=== PATIENT | male | born 1945 | race Caucasian/White ===

== ENCOUNTER 2017-01-29 01:20 | Inpatient (IN) ==
[2017-01-29] MEDS ORDERED: Acetaminophen 325 MG TABLET PO PRN (08:55)
[2017-01-29] MEDS ORDERED: Ondansetron 4 MG/2 ML VIAL IVP PRN (08:55)
[2017-01-29] MEDS ORDERED: 0.9 % Sodium Chloride w KCl 20 MEQ/1,000 ML MLS IVC SCH (09:00)
--- NOTE | 2017-01-29 09:17 | Internal Med History&Physical ---
Date of Encounter: 01/29/17 Time of Encounter: 09:13 Assessment and Plan (1) Paroxysmal a-fib Current visit: Yes Status: Acute Patient currently still in atrial fibrillation. Cardizem drip was stopped at [place] due to bradycardia. Heart rate in the high 80s to low 100s currently. I will start oral Cardizem. Trend troponins to rule out ACS. Obtain echocardiogram. Check thyroid function. Check and replete electrolytes. Consult cardiology. Chads-Vasc score of 3. Stroke risk 3.2% per year. Will start Lovenox anticoagulation for prophylaxis of stroke/TIA/embolism. (2) Atrial fibrillation with RVR Current visit: Yes Status: Acute Continue metoprolol and start oral diltiazem For rate control. (3) DVT prophylaxis Current visit: Yes Status: Acute Encourage early ambulation. Fully anticoagulated with Lovenox. (4) CAD (coronary artery disease) Current visit: Yes Status: Chronic Continue Plavix. Start aspirin. Continue with metoprolol. (5) HLD (hyperlipidemia) Current visit: No Status: Chronic For hyperlipidemia we will continue losartan. 4 essential hypertension continue oral antihypertensive medication. For DVT prophylaxis he is fully anticoagulated with Lovenox. Qualifiers: Qualified Code(s): E78.5 - Hyperlipidemia, unspecified Internal Medicine - H&P: HPI Chief complaint: Palpitations Admitted From: Intrahospital Transfer Plans for Post Hospital Care: Home History of present illness: Mr. Torres is a 72 year old male with past medical history significant for hypertension and CAD status post CABG who was transferred from an outside hospital where he presented for palpitations. Last evening she was ambulating at home when he developed sudden onset of palpitations in his chest, described as irregular, rapid pulse. She denied any associated chest pain lightheadedness and dizziness. Palpitations lasted for several hours until he presented to the hospital and he was started on Cardizem drip at which point he started to get some relief. He denies fevers chills nausea vomiting diarrhea, abnormal bleeding or bruising,. He reports chronic abdominal pain, urinary frequency secondary to BPH and chronic knee pain. At the outside hospital he was started on Cardizem drip and was given IV potassium for hypokalemia. A 10 point review of systems was negative except as described above. 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 He denies tobacco alcohol and drug use. Past Med Surg Social Fam HX - Past Medical History Medical history: arthritis, cancer, coronary artery disease, GERD, hypertension , kidney stones, myocardial infarction Psychiatric history: no psych history - Past Surgical History Surgical History: coronary bypass (CABG), herniorrhaphy, orthopedic, other - Social History Smoking Status: Never smoker Smokeless Tobacco Status: No (previously) Alcohol use: occasionally, recent Drug use: none - Family History Mother Living Status: Hx Family Cardiac Disorders: Yes Hx Family Respiratory Disorders: Yes (emphysema) Father Living Status: Age at : 66 Hx Family Cancer: Yes (colon cancer) Internal Medicine - H&P: Meds Amlodipine [Norvasc] 2.5 mg PO DAILY 01/13/16 [History] Atorvastatin [Lipitor] 40 mg PO DAILY 01/13/16 [History] Clopidogrel [Plavix] 75 mg PO DAILY 01/13/16 [History] Finasteride [Proscar] 5 mg PO HS 01/13/16 [History] Hydrochlorothiazide 25 mg PO DAILY 01/13/16 [History] Losartan Potassium [Cozaar] 50 mg PO BID 01/13/16 [History] Metoprolol XL (24 HR) Succ [Toprol Xl] 50 mg PO DAILY 01/13/16 [History] Ranitidine HCl [Zantac] 150 mg PO BID 01/13/16 [History] Tamsulosin [Flomax] 0.4 mg PO DAILY 01/13/16 [History] Nitroglycerin [Nitrostat] 0.4 mg SL Q5M PRN 03/14/16 [History] Pantoprazole Sodium 40 PO DAILY 01/29/17 [History] Allergies No Known Allergies Allergy (Verified 01/28/17 21:43) All Systems PM: A 10-system review of systems was performed and is negative for pertinent findings except as documented above in the HPI. - Constitutional Vitals: Temp Pulse Resp BP Pulse Ox 98.2 F 55 16 119/74 95 01/29/17 06:10 01/29/17 06:10 01/29/17 06:10 01/29/17 06:10 01/29/17 06:10 General appearance: Present: A&O X 3, no acute distress - Eye Eye exam: Present: PERRL, conjuntiva pink, sclera anicteric Pupils: Present: PERRL - Neck Neck exam general surgery: Present: supple, trachea midline. Absent: lymphadenopathy - Respiratory Respiratory exam: Present: CTAB. Absent: accessory muscle use, rales, rhonchi, wheezes - Cardiovascular Cardiovascular exam: Present: irregular rhythm, +S1, +S2. Absent: diastolic murmur, gallop, rubs, systolic murmur - GI/Abdominal GI/Abdominal exam: Present: normal bowel sounds, soft, no peritoneal signs. Absent: distended, tenderness - Extremities Exam Extremities exam: Present: warm, radial pulses palpable and symetrical. Absent : calf tenderness, cyanotic, pedal edema - Neurological Exam Neurological exam: Present: CN II-XII intact, oriented X3, no focal deficits. Absent: pronater drift, facial droop, speech deficit - Skin Skin exam: Present: dry, intact Internal Med - H&P Results - Labs CBC & Chem 7: 01/29/17 09:49 Labs: At [facility] medical record from 01/28/2017: Sodium 141, potassium 3.1, BUN 24, creatinine 0.92, glucose 112, BNP 69, troponin 0.01. Chest x-ray at [place] revealed no evidence of acute disease in the chest. - EKG Data -: EKG Interpreted by Myself (Yusra snow RVR 10 2 bpm, no acute ST or T-wave changes.)
[2017-01-29 10:22] LABS: BUN/Creatinine Ratio 26 (6-26); Blood Urea Nitrogen 20 mg/dL (8-26); Calcium 8.6 mg/dL (8.6-10.8); Carbon Dioxide 24 mEq/L (19-29); Chloride 109 mEq/L (98-109); Glucose 100 mg/dL (70-99); Osmolality,Calculated 295 (280-300); Potassium 3.5 mEq/L (3.5-4.5); Sodium 141 mEq/L (136-145); eGFR For African Americans > 60 (> 60); eGFR For Non-African Americans > 60 (> 60)
[2017-01-29] MEDS ORDERED: Nitroglycerin 0.4 MG TAB.SUBL SL PRN (10:32)
[2017-01-29] MEDS ORDERED: amLODIPine 5 MG TABLET PO SCH (10:45)
--- NOTE | 2017-01-29 11:11 | Cardiology Consult Note ---
Date of Encounter: 01/29/17 Time of Encounter: 11:08 Assessment and Plan (1) Atrial fibrillation with RVR Current Visit: Yes Status: Acute New diagnosis. Symptoms started last night and have persisted. On Toprol XL 50mg daily. K was 3.1 on presentation. Pt reports only med change was PCP started him on Pantoprazole recently. Potassium is being replaced. Mag 1.8, TSH 2.065. A-Fib with RVR on presentation, then became bradycardic with cardizem gtt and gtt was stopped. HR currently 90s-100s at bedside. Hospitalist has ordered PO Cardizem to be started--agree with this. CHADSVASC score of 3 (Age, HTN, CAD). Anticoagulation recommended. Discussed Coumadin vs. NOACs. Prefers NOAC. Will await echo results and vicente check. Therapeutic Lovenox in the meantime. Continue to monitor tele. Reports snoring at night--recommend outpt sleep study. Pt interested in rhythm control. Discussed DCCV, antarrhythmics, ablation. Will further discuss with Dr. Stewart and with EP, Dr. Shyam Odom. (2) CAD (coronary artery disease) Current Visit: Yes Status: Chronic Pt reports hx of CABG x 5 in 1999. Reports repeat LHC in 2004 and only showed 1 patent bypass graft. Pt and state they were told PCI was unable to be done. Pt denies any chest pain or dyspnea. Echo to evaluate structure and function. Continue Plavix, Statin, BB. No ASA since we will be starting anticoagulation-- triple therapy not necessary. Qualifiers: Coronary Disease-Associated Artery/Lesion type: unspecified vessel or lesion type [place] vs. transplanted heart: unspecified whether [place] or transplanted heart Associated angina: angina presence unspecified Qualified Code(s): I25.10 - Atherosclerotic heart disease of [place] coronary artery without angina pectoris (3) Essential hypertension Current Visit: Yes Status: Chronic Controlled currently. Stop Norvasc since starting Cardizem. On Toprol XL and Cozaar. Adjust as necessary. Discussion w patient/family: The assessment and plan as outlined above was discussed with the patient and/or family members who expressed understanding and agreement. All questions were answered. Thank you for involving us in the care of your patient. Please call with any questions. I will discuss all the above with Dr. Stewart and make changes as necessary. History of Present Illness Consult date: 01/29/17 Requesting physician: Blane Carrasco Consult reason: A-Fib Chief complaint: palpitations History of present illness: Mr. Torres is a 72 year old male with PMH of HTN and CAD s/p CABG x 5 in 1999, who was transferred from [place], where he presented for palpitations. Yesterday evening he was ambulating at home when he developed sudden onset of palpitations, described as irregular and rapid. He denies any associated chest pain, lightheadedness, dyspnea or dizziness. Palpitations lasted for several hours until he presented to the hospital and he was started on Cardizem drip at which point he started to get some relief. However, he then became bradycardic and cardizem was stopped. HR currently 90s-low 100s and pt reports ongoing palpitations. He tells me he had a repeat LHC in 2004 and only 1/5 bypass grafts were open, none were able to be stented. Past Med Surg Social Fam HX - Past Medical History Medical history: arthritis, cancer, coronary artery disease, GERD, hypertension , kidney stones, myocardial infarction Psychiatric history: no psych history - Past Surgical History Surgical History: coronary bypass (CABG), herniorrhaphy, orthopedic, other - Social History Smoking Status: Never smoker Smokeless Tobacco Status: No (previously) Alcohol use: occasionally, recent Drug use: none - Family History Mother Living Status: Hx Family Cardiac Disorders: Yes Hx Family Respiratory Disorders: Yes (emphysema) Father Living Status: Age at : 66 Hx Family Cancer: Yes (colon cancer) Medications and Allergies Amlodipine [Norvasc] 2.5 mg PO DAILY 01/13/16 [History] Atorvastatin [Lipitor] 40 mg PO DAILY 01/13/16 [History] Clopidogrel [Plavix] 75 mg PO DAILY 01/13/16 [History] Finasteride [Proscar] 5 mg PO HS 01/13/16 [History] Hydrochlorothiazide 25 mg PO DAILY 01/13/16 [History] Losartan Potassium [Cozaar] 50 mg PO BID 01/13/16 [History] Metoprolol XL (24 HR) Succ [Toprol Xl] 50 mg PO DAILY 01/13/16 [History] Ranitidine HCl [Zantac] 150 mg PO BID 01/13/16 [History] Tamsulosin [Flomax] 0.4 mg PO DAILY 01/13/16 [History] Nitroglycerin [Nitrostat] 0.4 mg SL Q5M PRN 03/14/16 [History] Pantoprazole Sodium 40 PO DAILY 01/29/17 [History] Allergies No Known Allergies Allergy (Verified 01/28/17 21:43) All Systems Review: A 10-system review of systems was performed and is negative for pertinent findings except as documented above in the HPI. - Cardiovascular Cardiovascular: as per HPI, irregular heart rhythm, palpitations, rapid heart rate Physical Examination Vital Signs Temp Pulse Resp BP Pulse Ox 01/29/17 06:10 98.2 F 55 16 119/74 95 Intake and Output 01/28/17 01/29/17 01/29/17 22:59 07:59 15:59 Other: Weight Patient Weight 01/30/17 00:59 Weight 88.621 kg General: Conversant, No Apparent Distress HEENT: Atraumatic, Normocephaly, Mucus Membranes Moist Neck: No JVD, Normal carotid pulses Cardiac: Other (irregularly irregular) Lungs: Normal Breath Sounds, No Wheeze, Rales, Rhonchi Neuro: Alert and responsive, No focal deficits noted Abdomen: Soft, Non-Tender Skin: No rashes noted on visualized skin Musculoskeletal: No Chest Wall Tenderness Extremities: No Clubbing, No Cyanosis, No Edema, Normal Pulses Results 01/29/17 09:49 Lab Results 01/29/17 01/29/17 01/29/17 09:49 09:49 09:49 Sodium 141 Potassium 3.5 Chloride 109 Carbon Dioxide 24 BUN 20 Creatinine 0.78 Glucose 100 H Calcium 8.6 Magnesium 1.8 Troponin I 0.01 TSH 01/29/17 09:49 Sodium Potassium Chloride Carbon Dioxide BUN Creatinine Glucose Calcium Magnesium Troponin I TSH 2.065 - EKG Interpretation EKG results cardiology: personally reviewed (A-Fib, rate 102.), other (24 hour tele AVG HR 95, A-Fib.) Consult Discharge Plan - Plan Referrals: Chaz Teran PRIZE FIGHTER [Primary Care Provider] -
[2017-01-29] MEDS: Metoprolol XL (24 HR) Succ 50 MG TAB.ER.24H PO SCH (12:01)
[2017-01-29] MEDS: Aspirin Enteric Coated 81 MG Tablet PO SCH (12:04)
[2017-01-29] MEDS: Famotidine 20 MG TABLET PO SCH ×2 (12:09→21:21)
--- NOTE | 2017-01-29 14:36 | ECHO - Doppler Report ---
Echocardiogram Name: Herve Torres Date of Study: 01/29/2017 Date: 1945 Ht: 71.0 in Medical Record#: [id number] Age: 72 Wt: 195.0 lb Gender: Male BSA: 2.09 Order #: [id number] Location: [facility] Room #: 3B34 Reading Physician: Neftaly Stewart DO, [facility] Database Operator: Mable Burns RDCS Ordering Physician: Blane Carrasco MD Primary Physician: Chaz Teran CNP Indications: Atrial fibrillation with rapid ventricular response Impressions: LVEF 50%. Normal LV chamber size, wall thickness and low normal function. Atypical septal motion consistent with post-operative status. Indeterminate diastolic function. Normal right ventricular structure and function. No evidence of pulmonary hypertension. No significant valvular dysfunction. Left Ventricular Wall Motion: Rest Echo Findings All wall segments showed normal motion. Findings: Study Quality * Technically adequate exam. ECG Findings * Atrial fibrillation. Left Ventricle * LVEF 50%. * Normal LV chamber size, wall thickness and low normal function. * Atypical septal motion consistent with post-operative status. * Indeterminate diastolic function. Right Ventricle * Normal right ventricular structure and function. Left Atrium * Mildly dilated left atrium. Right Atrium * Mildly dilated right atrium. Interatrial Septum * Interatrial septum not well evaluated. Aortic Valve * Trileaflet aortic valve. * No aortic regurgitation. * No aortic stenosis. Mitral Valve * Normal mitral valve structure and function. * No mitral regurgitation. * No mitral stenosis. Tricuspid Valve * Normal tricuspid valve structure and function. * Trace tricuspid regurgitation. * No evidence of pulmonary hypertension. Pulmonic Valve * Normal pulmonic valve structure and function. * No pulmonic regurgitation. Aorta * Normally sized aortic root. Pericardium * There is a trivial pericardial effusion present. IVC * The IVC is not dilated. Pulmonary Artery * Normal visualized portions of the main pulmonary artery. History Hypertension Hypercholesteremia Family History of CAD History of CAD/PTCA Myocardial Infarction Coronary Artery Bypass Graft Measurements: BP: 119/ 74 2D Normal Values RVIDd: 3.50 cm <2.7 cm IVSd: 1.10 cm 0.6 - 1.0 cm LVIDd: 5.00 cm 3.7 - 5.6 cm LVPWd: 1.10 cm 0.6 - 1.1 cm LVIDs: 2.80 cm 1.5 - 3.6 cm AO: 2.90 cm < 4.0 cm LA: 3.50 cm 2.0 - 4.0cm %FS: 44.00 cm >25 % LVOT Diam: 2.10 cm LA volume: 54 Mitral Valve Peak E:.83 m/sec Peak A:.31 m/sec E/A Ratio:2.7 Peak E' Lat Luis:13.4 cm/s Peak E' Med Luis:13.4 cm/s E/E' Lat Ratio:6.2 E/E' Med Ratio:6.2 Tricuspid Valve TV Regurg Peak Grad: 23.00mmHg TV Regurg Peak Luis: 2.41m/sec Updated by Neftaly Stewart DO, FACCarmenza, MARY, CASTRO on 01/29/2017 2:29:55 PM electronically signed on 01/29/2017 2:31:22 PM with status of Final Wall Motion Jc: 1=Normal, 2=Hypokinesis, 3=Akinesis, 4=Dyskinesis, 5=Aneurysmal, 6=Hyperkinetic, X=Not Visualized (Blank)=Missing
[2017-01-29] MEDS: *HR* Enoxaparin 100 MG/ML SYRINGE SQ SCH (18:03)
[2017-01-29] MEDS: Finasteride 5 MG TABLET PO SCH (21:21)
[2017-01-30 04:54] LABS: Basophils % 0.5 %; Eosinophils # 0.2 K/mcL (0.0-0.6); Hematocrit 45.3 % (37.5-50.1); Hemoglobin 15.6 g/dL (12.9-16.9); Immature Granulocytes % 0.3 % (0-4); Lymphocytes # 2.3 K/mcL (0.6-4.6); Lymphocytes % 29.8 %; Mean Corpuscular HGB Conc 34.4 g/dL (31.6-35.5); Mean Corpuscular Hemoglobin 31.6 pg (28.0-33.3); Mean Corpuscular Volume 91.7 fL (83.0-100.0); Mean Platelet Volume 11.2 fL (9.4-12.4); Monocytes # 0.6 K/mcL (0.0-1.3); Monocytes % 7.9 %; Neutrophils # 4.5 K/mcL (1.6-8.9); Platelet Count 184 K/mcL (140-400); Red Blood Count 4.94 M/mcL (4.19-5.50); Red Cell Distribution Width 12.7 % (11.5-14.5); Segmented Neutrophils % 59.5 %
[2017-01-30 05:03] LABS: BUN/Creatinine Ratio 19 (6-26); Blood Urea Nitrogen 18 mg/dL (8-26); Calcium 8.3 mg/dL (8.6-10.8); Carbon Dioxide 25 mEq/L (19-29); Chloride 112 mEq/L (98-109); Glucose 101 mg/dL (70-99); Osmolality,Calculated 296 (280-300); Potassium 3.8 mEq/L (3.5-4.5); Sodium 142 mEq/L (136-145); eGFR For African Americans > 60 (> 60); eGFR For Non-African Americans > 60 (> 60)
[2017-01-30 05:07] LABS: Chol/HDL Ratio 3.9 (0-4.9)
[2017-01-30] MEDS: *HR* Enoxaparin 100 MG/ML SYRINGE SQ SCH (05:52)
[2017-01-30] MEDS: hydroCHLOROthiazide 25 MG TABLET PO SCH (09:27)
[2017-01-30] MEDS: Famotidine 20 MG TABLET PO SCH ×2 (09:27→21:28)
[2017-01-30] MEDS: Aspirin Enteric Coated 81 MG Tablet PO SCH (09:27)
[2017-01-30] MEDS: Metoprolol XL (24 HR) Succ 50 MG TAB.ER.24H PO SCH (09:43)
--- NOTE | 2017-01-30 11:20 | Cardiology Progress Note ---
Date of Encounter: 01/30/17 Time of Encounter: 11:17 Assessment and Plan (1) Atrial fibrillation with RVR Current Visit: Yes Status: Acute New diagnosis. Symptoms started 2 nights ago. K was 3.1 on presentation. Potassium replaced--3.8 today. Mag 2.0, TSH 2.065. PO Cardizem 30mg [id number] started--24 hour tele AVG HR 100, A-Fib. CHADSVASC score of 3 (Age, HTN, CAD). Anticoagulation recommended. Discussed Coumadin vs. NOACs. Prefers NOAC. Awaiting vicente check on Xarelto. Therapeutic Lovenox in the meantime. Reports snoring at night--recommend outpt sleep study. Pt interested in rhythm control. Discussed MESFIN/DCCV on cardizem vs staying for antiarrhythmic initiation--Sotalol 80mg Q12 hours with possible MESFIN/DCCV if he does not convert. Pt prefers antiarrhythmic therapy. Start Sotalol 80mg Q12 hours with daily EKGs to monitor QTc <500ms. Baseline EKG QT/QTc 355/414ms. Will need monitored for 5 doses. Will stop Toprol. Echo resulted--EF 50%, low normal with no significant valvular dysfunction. Negative stress test in 2012. Known CAD, discussed with Dr. Odom and no need for ischemic eval at this time. (2) CAD (coronary artery disease) Current Visit: Yes Status: Chronic Pt reports hx of CABG in 1999. Reports repeat LHC in 2004 and only showed 1 patent bypass graft. Pt and state they were told PCI was unable to be done. Pt denies any chest pain or dyspnea. Echo shows low normal EF 50%. Troponins negative x 3. Negative stress test 2011. Continue Plavix, Statin, BB. No ASA since we will be starting anticoagulation-- triple therapy not necessary. Qualifiers: Coronary Disease-Associated Artery/Lesion type: unspecified vessel or lesion type [place] vs. transplanted heart: unspecified whether [place] or transplanted heart Associated angina: angina presence unspecified Qualified Code(s): I25.10 - Atherosclerotic heart disease of [place] coronary artery without angina pectoris (3) Essential hypertension Current Visit: Yes Status: Chronic Controlled currently. Adjust as necessary. Discussion w patient/family: The assessment and plan as outlined above was discussed with the patient and/or family members who expressed understanding and agreement. All questions were answered. Thank you for involving us in the care of your patient. Please call with any questions. I will discuss all the above with Dr. Shyam Odom and make changes as necessary. Subjective Principal diagnosis: A-Fib Interval history: 24 hour tele AVG HR 100, A-Fib. Echo resulted--EF low normal 50%, no significant valvular dysfunction. Pt reports palpitations, but no other complaints. Objective Vital Signs, Last 4 Hours Temp Pulse Resp BP Pulse Ox 01/30/17 11:06 97.8 F 98 18 120/74 97 General: Conversant, No Apparent Distress HEENT: Atraumatic, Normocephaly, Mucus Membranes Moist Neck: No JVD, Normal carotid pulses Cardiac: Other (irregularly irregular) Lungs: Normal Breath Sounds, No Wheeze, Rales, Rhonchi Neuro: Alert and responsive, No focal deficits noted Abdomen: Soft, Non-Tender Skin: No rashes noted on visualized skin Musculoskeletal: No Chest Wall Tenderness Extremities: No Clubbing, No Cyanosis, No Edema, Normal Pulses Results 01/30/17 04:08 01/30/17 04:08 Lab Results 01/29/17 01/29/17 01/30/17 14:39 20:40 04:08 WBC 7.6 Hgb 15.6 Hct 45.3 Plt Count 184 Sodium Potassium Chloride Carbon Dioxide BUN Creatinine Glucose Calcium Magnesium Troponin I 0.01 0.01 01/30/17 04:08 WBC Hgb Hct Plt Count Sodium 142 Potassium 3.8 Chloride 112 H Carbon Dioxide 25 BUN 18 Creatinine 0.95 Glucose 101 H Calcium 8.3 L Magnesium 2.0 Troponin I Short CBC 01/30/17 Range/Units 04:08 WBC 7.6 (4.3-11.1) K/mcL Hgb 15.6 (12.9-16.9) g/dL Hct 45.3 (37.5-50.1) % Plt Count 184 (140-400) K/mcL Neutrophils # 4.5 (1.6-8.9) K/mcL BMP 01/30/17 Range/Units 04:08 Sodium 142 (136-145) mEq/L Potassium 3.8 (3.5-4.5) mEq/L Chloride 112 H (98-109) mEq/L Carbon Dioxide 25 (19-29) mEq/L BUN 18 (8-26) mg/dL Creatinine 0.95 (0.72-1.25) mg/dL Glucose 101 H (70-99) mg/dL Calcium 8.3 L (8.6-10.8) mg/dL Cardiac Enzymes 01/29/17 01/29/17 Range/Units 20:40 14:39 Troponin I 0.01 0.01 (0-0.03) ng/mL Active Medications Acetaminophen (Tylenol) 650 mg PO Q6HR PRN PRN Reason: Mild Pain (1-3) Stop: 07/31/17 08:56 Aspirin (Aspirin Ec) 81 mg PO DAILY [facility] Stop: 07/31/17 09:46 Last Admin: 01/30/17 09:27 Dose: 81 mg Atorvastatin Calcium (Lipitor) 40 mg PO HS [facility] Stop: 07/31/17 21:01 Last Admin: 01/29/17 21:21 Dose: 40 mg Clopidogrel Bisulfate (Plavix) 75 mg PO DAILY [facility] Stop: 07/31/17 10:46 Last Admin: 01/30/17 09:27 Dose: 75 mg Diltiazem HCl (Cardizem) 30 mg PO Q6HR [facility] Stop: 07/31/17 12:01 Last Admin: 01/30/17 05:52 Dose: 30 mg Enoxaparin Sodium (Lovenox) 90 mg 1 mg/kg (90 mg) SQ Q12HR [facility] PRN Reason: Protocol Stop: 07/31/17 18:01 Last Admin: 01/30/17 05:52 Dose: 90 mg Famotidine (Pepcid) 20 mg PO BID [facility] Stop: 07/31/17 10:46 Last Admin: 01/30/17 09:27 Dose: 20 mg Finasteride (Proscar) 5 mg PO HS [facility] PRN Reason: Protocol Stop: 07/31/17 21:01 Last Admin: 01/29/17 21:21 Dose: 5 mg Hydrochlorothiazide (Hydrochlorothiazide) 25 mg PO DAILY [facility] PRN Reason: Protocol Stop: 08/01/17 09:01 Last Admin: 01/30/17 09:27 Dose: 25 mg Losartan Potassium (Cozaar) 50 mg PO BID [facility] Stop: 07/31/17 21:01 Last Admin: 01/30/17 09:27 Dose: 50 mg Nitroglycerin (Nitroglycerin) 0.4 mg SL Q5M PRN PRN Reason: Chest Pain Stop: 07/31/17 10:33 Omeprazole (Prilosec) 40 mg PO DAILY@0630 [facility] PRN Reason: Protocol Stop: 07/31/17 06:31 Last Admin: 01/30/17 05:52 Dose: 40 mg Ondansetron HCl (Zofran) 4 mg IVP Q8HR PRN PRN Reason: Nausea And Vomiting Stop: 07/31/17 08:56 Sotalol HCl (Betapace) 80 mg PO Q12H [facility] Stop: 08/01/17 10:16 Tamsulosin HCl (Flomax) 0.4 mg PO HS [facility] PRN Reason: Protocol Stop: 07/31/17 21:01 Last Admin: 01/29/17 21:21 Dose: 0.4 mg - Imaging and Cardiology Echo: report reviewed (EF 50%, no significant valvular dysfunction) - EKG Interpretation EKG results cardiology: other (24 hour tele AVG HR 100, A-Fib.) Consult Discharge Plan - Plan Referrals: Chaz Teran, MAINTENANCE CUSTODIAN [Primary Care Provider] -
--- NOTE | 2017-01-30 14:01 | Event Note ---
Date of Encounter: 01/30/17 Time of Encounter: 14:00 - Cardiology Event Note Xarelto vicente check $78.04/month. Pt agrees to this. Start Xarelto this evening for anticoagulation and stop Lovenox.
--- NOTE | 2017-01-30 15:30 | Electrocardiograph Report ---
[place] [id number] Test Date: 2017-01-29 Pat Name: Herve Torres Department: 113 Room: 3B Gender: M Nutrition Associate: : 1945 Requested By: Blane Carrasco Order Number: [id number] Reading MD: Yoni Manriquez MD Measurements Intervals [place] Rate: 102 P: OK: 0 QRS: 71 QRSD: 101 T: 36 QT: 355 QTc: 414 Interpretive Statements ATRIAL FIBRILLATION WITH RAPID VENTRICULAR RESPONSE Electronically Signed On 01-30-2017 15:28:37 EDT by Yoni Manriquez MD
[2017-01-30] MEDS: *HR* Rivaroxaban 10 MG TABLET PO SCH (18:55)
--- NOTE | 2017-01-30 20:08 | Internal Med Progress Note ---
Date of Encounter: 01/30/17 Time of Encounter: 09:00 - Assessment and plan (1) Atrial fibrillation with RVR Current Visit: Yes Status: Acute Assessment and plan: Rate is controlled. Pt has symptomatic A Fib. Wants rhythm control. Anti- arrhythmia therapy started. Cardio consult on case. Xarelto for anticoagulation. (2) DVT prophylaxis Current Visit: Yes Status: Acute Assessment and plan: On xarelto (3) Paroxysmal a-fib Current Visit: Yes Status: Acute Assessment and plan: As above (4) CAD (coronary artery disease) Current Visit: Yes Status: Chronic Assessment and plan: Continue home medications Qualifiers: Coronary Disease-Associated Artery/Lesion type: [place] artery [place] vs. transplanted heart: unspecified whether [place] or transplanted heart Associated angina: angina presence unspecified Qualified Code(s): I25.10 - Atherosclerotic heart disease of [place] coronary artery without angina pectoris (5) Essential hypertension Current Visit: Yes Status: Chronic Assessment and plan: BP is stable, continue home medications (6) HLD (hyperlipidemia) Current Visit: No Status: Chronic Assessment and plan: Continue home medications Qualifiers: Hyperlipidemia type: unspecified Qualified Code(s): E78.5 - Hyperlipidemia , unspecified - Time Spent With Patient 25 - 35 minutes - Subjective Interval history: Patient is a 72-year-old male admitted to for A Fib with rapid ventricular response. His past medical history is significant for CAD, hypertension, kidney stone He was seen and examined. His heart rate is controlled with Cardizem drip. Cardizem drip has been stopped and and switched to by mouth and metoprolol and Cardizem. Patient still has symptoms for A. fib. Patient is interested in rhythm control. Cardiology consult is on case and by mouth sotalol has started. We will closely monitor patient. Xarelto started for anticoagulation. - Constitutional Vitals: Temp Pulse Resp BP Pulse Ox 97.4 F L 61 16 104/66 95 01/30/17 19:31 01/30/17 19:31 01/30/17 19:31 01/30/17 19:31 01/30/17 19:31 General appearance: Present: A&O X 3, no acute distress - Head Head exam: Present: atraumatic, normocephalic - Eye Eye exam: Present: PERRL, conjuntiva pink, sclera anicteric Pupils: Present: PERRL - Neck Neck exam general surgery: Present: supple, trachea midline. Absent: lymphadenopathy - Respiratory Respiratory exam: Present: CTAB. Absent: accessory muscle use, rales, rhonchi, wheezes - Cardiovascular Cardiovascular exam: Present: irregular rhythm, +S1, +S2. Absent: diastolic murmur, gallop, rubs, systolic murmur - GI/Abdominal GI/Abdominal exam: Present: normal bowel sounds, soft, no peritoneal signs. Absent: distended, tenderness - Extremities Exam Extremities exam: Present: warm, radial pulses palpable and symetrical. Absent : calf tenderness, cyanotic, pedal edema - Neurological Exam Neurological exam: Present: CN II-XII intact, oriented X3, no focal deficits. Absent: pronater drift, facial droop, speech deficit - Skin Skin exam: Present: dry, intact Internal Medicine: Result - Labs CBC & Chem 7: 01/30/17 04:08 01/30/17 04:08 Labs: Short CBC 01/30/17 Range/Units 04:08 WBC 7.6 (4.3-11.1) K/mcL Hgb 15.6 (12.9-16.9) g/dL Hct 45.3 (37.5-50.1) % Plt Count 184 (140-400) K/mcL Neutrophils # 4.5 (1.6-8.9) K/mcL BMP 01/30/17 04:08 Sodium 142 Potassium 3.8 Chloride 112 H Carbon Dioxide 25 BUN 18 Creatinine 0.95 Glucose 101 H Calcium 8.3 L Cardiac Enzymes 01/29/17 Range/Units 20:40 Troponin I 0.01 (0-0.03) ng/mL Consult Discharge Plan - Plan Referrals: Chaz Teran CNP [Primary Care Provider] -
[2017-01-30] MEDS: Finasteride 5 MG TABLET PO SCH (21:29)
[2017-01-31 04:17] LABS: Basophils # 0.1 K/mcL (0.0-0.2); Basophils % 0.6 %; Eosinophils # 0.2 K/mcL (0.0-0.6); Eosinophils % 2.1 %; Hematocrit 42.8 % (37.5-50.1); Hemoglobin 14.7 g/dL (12.9-16.9); Immature Granulocytes % 0.3 % (0-4); Lymphocytes # 2.1 K/mcL (0.6-4.6); Lymphocytes % 27.5 %; Mean Corpuscular HGB Conc 34.3 g/dL (31.6-35.5); Mean Corpuscular Hemoglobin 30.9 pg (28.0-33.3); Mean Corpuscular Volume 90.1 fL (83.0-100.0); Mean Platelet Volume 10.9 fL (9.4-12.4); Monocytes # 0.7 K/mcL (0.0-1.3); Monocytes % 8.7 %; Neutrophils # 4.7 K/mcL (1.6-8.9); Platelet Count 184 K/mcL (140-400); Red Blood Count 4.75 M/mcL (4.19-5.50); Red Cell Distribution Width 12.6 % (11.5-14.5); Segmented Neutrophils % 60.8 %
[2017-01-31 04:30] LABS: BUN/Creatinine Ratio 23 (6-26); Blood Urea Nitrogen 19 mg/dL (8-26); Calcium 8.2 mg/dL (8.6-10.8); Carbon Dioxide 23 mEq/L (19-29); Chloride 108 mEq/L (98-109); Glucose 93 mg/dL (70-99); Magnesium 2.1 mg/dL (1.6-2.6); Osmolality,Calculated 290 (280-300); Potassium 3.7 mEq/L (3.5-4.5); Sodium 139 mEq/L (136-145); eGFR For African Americans > 60 (> 60); eGFR For Non-African Americans > 60 (> 60)
[2017-01-31] MEDS: hydroCHLOROthiazide 25 MG TABLET PO SCH (09:00)
[2017-01-31] MEDS: Famotidine 20 MG TABLET PO SCH ×2 (09:00→20:51)
--- NOTE | 2017-01-31 10:54 | Cardiology Progress Note ---
Date of Encounter: 01/31/17 Time of Encounter: 10:51 Assessment and Plan (1) Atrial fibrillation with RVR Current Visit: Yes Status: Acute New diagnosis. K was 3.1 on presentation. Potassium replaced--3.7 today. Mag 2.0, TSH 2.065. CHADSVASC score of 3 (Age, HTN, CAD). Anticoagulation recommended. Prefers NOAC. Xarelto is $78/04/month--okay with this cost. Xarelto started yesterday evening. Reports snoring at night--recommend outpt sleep study. Started Sotalol 80mg Q12 hours yesterday for rhythm control strategy. Pt converted to SR after first dose. Daily EKGs to monitor QTc <500ms. Baseline EKG QT/QTc 355/414ms. S/P 1st dose EKG QT/QTc 372/412ms. S/P 2nd dose EKG QT/QTc 438/423ms. Needs monitored for 5 doses. Anticipate discharge tomorrow after 5th dose in AM. Echo resulted--EF 50%, low normal with no significant valvular dysfunction. Negative stress test in 2012. (2) CAD (coronary artery disease) Current Visit: Yes Status: Chronic Pt reports hx of CABG in 1999. Reports repeat LHC in 2004 and only showed 1 patent bypass graft. Pt and state they were told PCI was unable to be done. Pt denies any chest pain or dyspnea. Echo shows low normal EF 50%. Troponins negative x 3. Negative stress test 2011. Continue Plavix, Statin, BB. No ASA since we will be starting anticoagulation-- triple therapy not necessary. Qualifiers: Coronary Disease-Associated Artery/Lesion type: [place] artery [place] vs. transplanted heart: unspecified whether [place] or transplanted heart Associated angina: angina presence unspecified Qualified Code(s): I25.10 - Atherosclerotic heart disease of [place] coronary artery without angina pectoris (3) Essential hypertension Current Visit: Yes Status: Chronic Controlled currently. Adjust as necessary. Discussion w patient/family: The assessment and plan as outlined above was discussed with the patient and/or family members who expressed understanding and agreement. All questions were answered. Thank you for involving us in the care of your patient. Please call with any questions. I will discuss all the above with Dr. Shyam Odom and make changes as necessary. Subjective Principal diagnosis: A-Fib Interval history: 24 hour tele AVG HR 68, pt converted to SR after first dose of Sotalol. Currently SR with HR 50s. Has received 2 doses. QTc remains <500ms. Pt denies any acute complaints this AM, reports feeling well. Objective Vital Signs, Last 4 Hours Temp Pulse Resp BP Pulse Ox 01/31/17 07:45 97.6 F 52 16 116/68 97 Vital Signs Temp Pulse Resp BP Pulse Ox 01/31/17 07:45 97.6 F 52 16 116/68 97 01/31/17 03:38 97.6 F 59 16 102/61 95 01/30/17 22:53 97.4 F L 59 16 116/74 97 01/30/17 19:31 97.4 F L 61 16 104/66 95 01/30/17 15:15 97.4 F L 69 16 102/70 97 01/30/17 11:06 97.8 F 98 18 120/74 97 Intake and Output 01/30/17 01/31/17 01/31/17 23:59 07:59 15:59 Intake Total 240 / 240 680 / 680 360 / 360 Output Total 150 / 150 250 / 250 Balance 90 / 90 430 / 430 360 / 360 Intake: Oral 240 / 240 680 / 680 360 / 360 Output: Urine 150 / 150 250 / 250 Other: Meal Dinner Breakfast Percent of Meal Consumed 100% 100% # Voids 1 Weight 90.265 kg Patient Weight 01/31/17 23:59 Weight 90.265 kg General: Conversant, No Apparent Distress HEENT: Atraumatic, Normocephaly, Mucus Membranes Moist Neck: No JVD, Normal carotid pulses Cardiac: Reg Rate and Rhythm, Normal S1 and S2, No Murmur Lungs: Normal Breath Sounds, No Wheeze, Rales, Rhonchi Neuro: Alert and responsive, No focal deficits noted Abdomen: Soft, Non-Tender Skin: No rashes noted on visualized skin Musculoskeletal: No Chest Wall Tenderness Extremities: No Clubbing, No Cyanosis, No Edema, Normal Pulses Results 01/31/17 03:44 01/31/17 03:44 Lab Results 01/31/17 01/31/17 03:44 03:44 WBC 7.7 Hgb 14.7 Hct 42.8 Plt Count 184 Sodium 139 Potassium 3.7 Chloride 108 Carbon Dioxide 23 BUN 19 Creatinine 0.84 Glucose 93 Calcium 8.2 L Magnesium 2.1 Short CBC 01/31/17 Range/Units 03:44 WBC 7.7 (4.3-11.1) K/mcL Hgb 14.7 (12.9-16.9) g/dL Hct 42.8 (37.5-50.1) % Plt Count 184 (140-400) K/mcL Neutrophils # 4.7 (1.6-8.9) K/mcL BMP 01/31/17 Range/Units 03:44 Sodium 139 (136-145) mEq/L Potassium 3.7 (3.5-4.5) mEq/L Chloride 108 (98-109) mEq/L Carbon Dioxide 23 (19-29) mEq/L BUN 19 (8-26) mg/dL Creatinine 0.84 (0.72-1.25) mg/dL Glucose 93 (70-99) mg/dL Calcium 8.2 L (8.6-10.8) mg/dL Active Medications Acetaminophen (Tylenol) 650 mg PO Q6HR PRN PRN Reason: Mild Pain (1-3) Stop: 07/31/17 08:56 Atorvastatin Calcium (Lipitor) 40 mg PO HS [facility] Stop: 07/31/17 21:01 Last Admin: 01/30/17 21:29 Dose: 40 mg Clopidogrel Bisulfate (Plavix) 75 mg PO DAILY [facility] Stop: 07/31/17 10:46 Last Admin: 01/31/17 09:00 Dose: 75 mg Famotidine (Pepcid) 20 mg PO BID [facility] Stop: 07/31/17 10:46 Last Admin: 01/31/17 09:00 Dose: 20 mg Finasteride (Proscar) 5 mg PO HS [facility] PRN Reason: Protocol Stop: 07/31/17 21:01 Last Admin: 01/30/17 21:29 Dose: 5 mg Hydrochlorothiazide (Hydrochlorothiazide) 25 mg PO DAILY [facility] PRN Reason: Protocol Stop: 08/01/17 09:01 Last Admin: 01/31/17 09:00 Dose: 25 mg Losartan Potassium (Cozaar) 50 mg PO DAILY [facility] Stop: 08/02/17 09:01 Last Admin: 01/31/17 09:00 Dose: 50 mg Nitroglycerin (Nitroglycerin) 0.4 mg SL Q5M PRN PRN Reason: Chest Pain Stop: 07/31/17 10:33 Omeprazole (Prilosec) 40 mg PO DAILY@0630 [facility] PRN Reason: Protocol Stop: 07/31/17 06:31 Last Admin: 01/31/17 05:37 Dose: Not Given Ondansetron HCl (Zofran) 4 mg IVP Q8HR PRN PRN Reason: Nausea And Vomiting Stop: 07/31/17 08:56 Rivaroxaban (Xarelto) 20 mg PO 1700 [facility] Stop: 08/01/17 17:01 Last Admin: 01/30/17 18:55 Dose: 20 mg Sotalol HCl (Betapace) 80 mg PO Q12H [facility] Stop: 08/01/17 10:16 Last Admin: 01/31/17 09:55 Dose: 80 mg Tamsulosin HCl (Flomax) 0.4 mg PO HS [facility] PRN Reason: Protocol Stop: 07/31/17 21:01 Last Admin: 01/30/17 21:29 Dose: 0.4 mg - EKG Interpretation EKG results cardiology: other (24 hour tele AVG HR 68, SR now.) Consult Discharge Plan - Plan Referrals: Chaz Teran, [employer] PILER [Primary Care Provider] -
--- NOTE | 2017-01-31 14:55 | Internal Med Progress Note ---
Date of Encounter: 01/31/17 Time of Encounter: 14:15 - Assessment and plan (1) Atrial fibrillation with RVR Current Visit: Yes Status: Acute Assessment and plan: Pt is in sinus rhythm now. He denies cp or sob. Pt was seen by cardiology this a.m. and will need to stay for monitoring for new medication until morning. Pt is aware. 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 Pt is NSR and will repeat EKG in the a.m. Trop negative x 3, 0.01. Qualifiers: Coronary Disease-Associated Artery/Lesion type: [place] artery [place] vs. transplanted heart: unspecified whether [place] or transplanted heart Associated angina: angina presence unspecified Qualified Code(s): I25.10 - Atherosclerotic heart disease of [place] coronary artery without angina pectoris (5) Essential hypertension Current Visit: Yes Status: Chronic Assessment and plan: Pt has been normotensive. Continue home medications Continue to monitor vital signs (6) HLD (hyperlipidemia) Current Visit: No Status: Chronic Assessment and plan: Continue home medications. Qualifiers: Hyperlipidemia type: unspecified Qualified Code(s): E78.5 - Hyperlipidemia , unspecified - Time Spent With Patient less than 15 minutes - Subjective Interval history: Pt states that he feels much better, but is aware of the need to stay until morning for medication dosing. He denies pain or SOB, denies n/v. - Constitutional Vitals: Temp Pulse Resp BP Pulse Ox 97.6 F 54 16 124/73 98 01/31/17 11:12 01/31/17 11:12 01/31/17 11:12 01/31/17 11:12 01/31/17 11:12 General appearance: Present: cooperative, A&O X 3, pleasant, no acute distress, answers questions appropriately - Head Head exam: Present: normal inspection - Eye Eye exam: Present: normal appearance, conjuntiva pink - ENT ENT exam: Present: mucous membranes moist, normal exam - Neck Neck exam general surgery: Present: normal inspection, nuchal rigidity. Absent : lymphadenopathy, tenderness, thyromegaly - Cardiovascular Cardiovascular exam: Present: RRR, +S1, +S2. Absent: distant heart sounds, systolic murmur - GI/Abdominal GI/Abdominal exam: Present: normal bowel sounds, soft. Absent: tenderness - Extremities Exam Extremities exam: Present: full ROM, normal capillary refill, normal inspection , warm, radial pulses palpable and symetrical. Absent: calf tenderness, cyanotic, joint swelling, mottling, pedal edema, tenderness Additional comments: Pt with +2 tony pedal pulses. - Neurological Exam Neurological exam: Present: alert, oriented X3. Absent: facial droop, speech deficit Internal Medicine: Result - Labs CBC & Chem 7: 01/31/17 03:44 01/31/17 03:44 Labs: Short CBC 01/31/17 Range/Units 03:44 WBC 7.7 (4.3-11.1) K/mcL Hgb 14.7 (12.9-16.9) g/dL Hct 42.8 (37.5-50.1) % Plt Count 184 (140-400) K/mcL Neutrophils # 4.7 (1.6-8.9) K/mcL BMP 01/31/17 03:44 Sodium 139 Potassium 3.7 Chloride 108 Carbon Dioxide 23 BUN 19 Creatinine 0.84 Glucose 93 Calcium 8.2 L Consult Discharge Plan - Plan Referrals: Chaz Teran CNP [Primary Care Provider] -
--- NOTE | 2017-01-31 15:47 | Electrocardiograph Report ---
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
--- NOTE | 2017-01-31 15:53 | Electrocardiograph Report ---
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
--- NOTE | 2017-01-31 15:56 | Electrocardiograph Report ---
[place] [address] Test Date: 2017-01-31 Pat Name: Herve Torres Department: 113 Room: 3B Gender: M Rn Neonatal: : 1945 Requested By: Liu Hammonds Order Number: [id number] Reading MD: Dalia Odom Measurements Intervals [place] Rate: 51 P: 0 MN: 151 QRS: 44 QRSD: 112 T: 49 QT: 450 QTc: 428 Interpretive Statements SINUS BRADYCARDIA MODERATE INTRAVENTRICULAR CONDUCTION DELAY Electronically Signed On 01-31-2017 15:54:19 EDT by Dalia Odom
[2017-01-31] MEDS: *HR* Rivaroxaban 10 MG TABLET PO SCH (18:16)
[2017-01-31] MEDS: Finasteride 5 MG TABLET PO SCH (20:52)
[2017-02-01 05:15] LABS: Basophils # 0.1 K/mcL (0.0-0.2); Basophils % 0.6 %; Eosinophils # 0.1 K/mcL (0.0-0.6); Eosinophils % 1.8 %; Hematocrit 41.9 % (37.5-50.1); Hemoglobin 14.6 g/dL (12.9-16.9); Immature Granulocytes % 0.4 % (0-4); Lymphocytes # 2.1 K/mcL (0.6-4.6); Lymphocytes % 26.7 %; Mean Corpuscular HGB Conc 34.8 g/dL (31.6-35.5); Mean Corpuscular Hemoglobin 31.7 pg (28.0-33.3); Mean Corpuscular Volume 91.1 fL (83.0-100.0); Mean Platelet Volume 11.2 fL (9.4-12.4); Monocytes # 0.7 K/mcL (0.0-1.3); Monocytes % 8.8 %; Neutrophils # 4.8 K/mcL (1.6-8.9); Platelet Count 178 K/mcL (140-400); Red Cell Distribution Width 12.6 % (11.5-14.5); Segmented Neutrophils % 61.7 %
[2017-02-01 05:22] LABS: BUN/Creatinine Ratio 21 (6-26); Blood Urea Nitrogen 19 mg/dL (8-26); Calcium 8.3 mg/dL (8.6-10.8); Carbon Dioxide 25 mEq/L (19-29); Chloride 107 mEq/L (98-109); Glucose 89 mg/dL (70-99); Osmolality,Calculated 290 (280-300); Potassium 3.7 mEq/L (3.5-4.5); Sodium 139 mEq/L (136-145); eGFR For African Americans > 60 (> 60); eGFR For Non-African Americans > 60 (> 60)
[2017-02-01] MEDS: Famotidine 20 MG TABLET PO SCH (10:01)
[2017-02-01] MEDS: hydroCHLOROthiazide 25 MG TABLET PO SCH (10:02)
[2017-02-01 10:46] VITALS: BP 119/74
--- NOTE | 2017-02-01 11:36 | Cardiology Progress Note ---
Date of Encounter: 02/01/17 Time of Encounter: 11:33 Assessment and Plan (1) Atrial fibrillation with RVR Current Visit: Yes Status: Acute New diagnosis. K was 3.1 on presentation. Potassium replaced--3.7 today. Mag 2.0, TSH 2.065. CHADSVASC score of 3 (Age, HTN, CAD). Anticoagulation recommended. Prefers NOAC. Xarelto is $78/04/month--okay with this cost. Xarelto started yesterday evening. Reports snoring at night--recommend outpt sleep study. Started Sotalol 80mg Q12 hours, converted to SR after first dose and has maintained SR. Has received 5 doses of Sotalol. QTc remains <500ms. s/p 5th dose EKG scheduled at noon. Baseline EKG QT/QTc 355/414ms. S/P 1st dose EKG QT/QTc 372/412ms. S/P 2nd dose EKG QT/QTc 438/423ms. S/P 3rd dose EKG QT/QTc 450/428ms. If s/p 5th dose EKG QTc <500ms, okay for discharge home. 24 hour tele AVG HR 51--lowest HR 41. Pt asymptomatic. Dr. Odom aware. Okay to continue Sotalol. Echo -EF 50%, low normal with no significant valvular dysfunction. Negative stress test in 2011. Cardiology signing off. Reconsult PRN. Outpt follow-up in [facility] with Dr. Shyam Odom in 2-3 weeks. (2) CAD (coronary artery disease) Current Visit: Yes Status: Chronic Pt reports hx of CABG in 1999. Reports repeat LHC in 2004 and only showed 1 patent bypass graft. Pt and state they were told PCI was unable to be done. Pt denies any chest pain or dyspnea. Echo shows low normal EF 50%. Troponins negative x 3. Negative stress test 2011. Continue Plavix, Statin, BB. No ASA since we will be starting anticoagulation-- triple therapy not necessary. Qualifiers: Coronary Disease-Associated Artery/Lesion type: [place] artery [place] vs. transplanted heart: unspecified whether [place] or transplanted heart Associated angina: angina presence unspecified Qualified Code(s): I25.10 - Atherosclerotic heart disease of [place] coronary artery without angina pectoris (3) Essential hypertension Current Visit: Yes Status: Chronic Controlled currently. Adjust as necessary. Discussion w patient/family: The assessment and plan as outlined above was discussed with the patient and/or family members who expressed understanding and agreement. All questions were answered. Thank you for involving us in the care of your patient. Please call with any questions. I will discuss all the above with Dr. Shyam Odom and make changes as necessary. Subjective Principal diagnosis: A-Fib Interval history: 24 hour tele AVG HR 51, maintaining SR on Sotalol. Has received 5 doses. QTc remains <500ms. Pt denies any acute complaints this AM, reports feeling well. Objective Vital Signs, Last 4 Hours Temp Pulse Resp BP Pulse Ox 02/01/17 10:44 97.6 F 55 16 119/74 97 Vital Signs Temp Pulse Resp BP Pulse Ox 02/01/17 10:44 97.6 F 55 16 119/74 97 02/01/17 07:15 97.6 F 47 16 118/73 97 02/01/17 03:30 97.8 F 53 15 104/65 95 01/31/17 23:24 97.5 F L 63 15 112/65 98 01/31/17 19:55 97.7 F 59 17 148/75 97 01/31/17 19:50 97.6 F 59 15 113/68 97 01/31/17 15:31 97.8 F 50 16 122/78 96 Intake and Output 01/31/17 02/01/17 02/01/17 23:59 07:59 15:59 Intake Total 1610 / 1610 700 / 700 240 / 240 Output Total 550 / 550 450 / 450 Balance 1060 / 1060 250 / 250 240 / 240 Intake: Oral 1610 / 1610 700 / 700 240 / 240 Output: Urine 550 / 550 450 / 450 Other: Meal Dinner Breakfast Percent of Meal Consumed 90% 90% Weight 90.718 kg Patient Weight 02/01/17 23:59 Weight 90.718 kg General: Conversant, No Apparent Distress HEENT: Atraumatic, Normocephaly, Mucus Membranes Moist Neck: No JVD, Normal carotid pulses Cardiac: Reg Rate and Rhythm, Normal S1 and S2, No Murmur Lungs: Normal Breath Sounds, No Wheeze, Rales, Rhonchi Neuro: Alert and responsive, No focal deficits noted Abdomen: Soft, Non-Tender Skin: No rashes noted on visualized skin Musculoskeletal: No Chest Wall Tenderness Extremities: No Clubbing, No Cyanosis, No Edema, Normal Pulses Results 02/01/17 04:35 02/01/17 04:35 Lab Results 02/01/17 02/01/17 04:35 04:35 WBC 7.8 Hgb 14.6 Hct 41.9 Plt Count 178 Sodium 139 Potassium 3.7 Chloride 107 Carbon Dioxide 25 BUN 19 Creatinine 0.89 Glucose 89 Calcium 8.3 L Short CBC 02/01/17 Range/Units 04:35 WBC 7.8 (4.3-11.1) K/mcL Hgb 14.6 (12.9-16.9) g/dL Hct 41.9 (37.5-50.1) % Plt Count 178 (140-400) K/mcL Neutrophils # 4.8 (1.6-8.9) K/mcL BMP 02/01/17 Range/Units 04:35 Sodium 139 (136-145) mEq/L Potassium 3.7 (3.5-4.5) mEq/L Chloride 107 (98-109) mEq/L Carbon Dioxide 25 (19-29) mEq/L BUN 19 (8-26) mg/dL Creatinine 0.89 (0.72-1.25) mg/dL Glucose 89 (70-99) mg/dL Calcium 8.3 L (8.6-10.8) mg/dL Active Medications Acetaminophen (Tylenol) 650 mg PO Q6HR PRN PRN Reason: Mild Pain (1-3) Stop: 07/31/17 08:56 Atorvastatin Calcium (Lipitor) 40 mg PO HS [facility] Stop: 07/31/17 21:01 Last Admin: 01/31/17 20:51 Dose: 40 mg Clopidogrel Bisulfate (Plavix) 75 mg PO DAILY [facility] Stop: 07/31/17 10:46 Last Admin: 02/01/17 10:02 Dose: 75 mg Docusate Sodium (Colace) 100 mg PO BID PRN; Protocol PRN Reason: Constipation Stop: 08/02/17 22:18 Last Admin: 01/31/17 22:41 Dose: 100 mg Famotidine (Pepcid) 20 mg PO BID [facility] Stop: 07/31/17 10:46 Last Admin: 02/01/17 10:01 Dose: 20 mg Finasteride (Proscar) 5 mg PO HS [facility] PRN Reason: Protocol Stop: 07/31/17 21:01 Last Admin: 01/31/17 20:52 Dose: 5 mg Hydrochlorothiazide (Hydrochlorothiazide) 25 mg PO DAILY [facility] PRN Reason: Protocol Stop: 08/01/17 09:01 Last Admin: 02/01/17 10:02 Dose: 25 mg Losartan Potassium (Cozaar) 50 mg PO DAILY [facility] Stop: 08/02/17 09:01 Last Admin: 02/01/17 10:02 Dose: 50 mg Nitroglycerin (Nitroglycerin) 0.4 mg SL Q5M PRN PRN Reason: Chest Pain Stop: 07/31/17 10:33 Omeprazole (Prilosec) 40 mg PO DAILY@0630 [facility] PRN Reason: Protocol Stop: 07/31/17 06:31 Last Admin: 02/01/17 06:11 Dose: 40 mg Ondansetron HCl (Zofran) 4 mg IVP Q8HR PRN PRN Reason: Nausea And Vomiting Stop: 07/31/17 08:56 Rivaroxaban (Xarelto) 20 mg PO 1700 [facility] Stop: 08/01/17 17:01 Last Admin: 01/31/17 18:16 Dose: 20 mg Sotalol HCl (Betapace) 80 mg PO Q12H [facility] Stop: 08/01/17 10:16 Last Admin: 02/01/17 10:02 Dose: 80 mg Tamsulosin HCl (Flomax) 0.4 mg PO HS [facility] PRN Reason: Protocol Stop: 07/31/17 21:01 Last Admin: 01/31/17 20:51 Dose: 0.4 mg - EKG Interpretation EKG results cardiology: other (24 hour tele AVG HR 51, lowest HR noted 41.) Consult Discharge Plan - Plan Referrals: Chaz Teran, SCUDDING INSPECTOR [Primary Care Provider] -
--- NOTE | 2017-02-01 12:36 | Electrocardiograph Report ---
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
--- NOTE | 2017-02-01 14:21 | Discharge Summary ---
Date of Encounter: 02/01/17 Time of Encounter: 12:30 - Discharge Diagnosis (1) Atrial fibrillation with RVR Priority: Primary Status: Acute Comments: Rate is controlled. EKG done today after 5th dose of Sotalol shows rate of 50, sinus bradycardia, IA interval 130, QRS 110 and QTc 413. Pt was cleared by cardiology to go home if QTc was <500 after 5th dose. Echo showed EF 50% and no significant valvular dysfunction. Last stress negative in 2011. Pt states that he feels fine and denies pain, no weakness or SOB. Lungs are clear, no peripheral edema. Troponins are negative and labs WNL. Pt to follow up with cardiology in2-3 weeks [facility] with Dr. Odom. Pt will be discharged on Xarelto and Sotalol. (2) DVT prophylaxis Priority: Secondary Status: Acute Comments: Xarelto. Will be continued at home. (3) CAD (coronary artery disease) Priority: Secondary Status: Chronic Comments: Pt to continue home medications and follow up with cardiology and PCP. Qualifiers: Coronary Disease-Associated Artery/Lesion type: [place] artery [place] vs. transplanted heart: unspecified whether [place] or transplanted heart Associated angina: angina presence unspecified Qualified Code(s): I25.10 - Atherosclerotic heart disease of [place] coronary artery without angina pectoris (4) Essential hypertension Priority: Secondary Status: Chronic Comments: Pt has been normotensive. Continue home medications. (5) HLD (hyperlipidemia) Priority: Secondary Status: Chronic Comments: Continue home medications and follow up with PCP. Qualifiers: Hyperlipidemia type: unspecified Qualified Code(s): E78.5 - Hyperlipidemia , unspecified - Discharge Medications Prescriptions: Rivaroxaban [Xarelto] 20 mg PO 1700 #30 tablet Sotalol [Betapace] 80 mg PO Q12H #60 tablet Home Medications: Amlodipine [Norvasc] 2.5 mg PO DAILY 01/13/16 [History] Atorvastatin [Lipitor] 40 mg PO DAILY 01/13/16 [History] Clopidogrel [Plavix] 75 mg PO DAILY 01/13/16 [History] Finasteride [Proscar] 5 mg PO HS 01/13/16 [History] Hydrochlorothiazide 50 mg PO DAILY 01/13/16 [History] Losartan Potassium [Cozaar] 50 mg PO BID 01/13/16 [History] Ranitidine HCl [Zantac] 150 mg PO BID 01/13/16 [History] Tamsulosin [Flomax] 0.4 mg PO DAILY 01/13/16 [History] Pantoprazole Sodium [Protonix] 40 mg PO DAILY 01/29/17 [History] Rivaroxaban [Xarelto] 20 mg PO 1700 #30 tablet 02/01/17 [Rx] Sotalol [Betapace] 80 mg PO Q12H #60 tablet 02/01/17 [Rx] Allergies/Adverse Reactions: Allergies No Known Allergies Allergy (Verified 01/28/17 21:43) Procedures/tests Complete & Pending: Procedures Performed prior 72 hours Category Date Time Status ECG 12 lead ECG [ECG] Routine Y 01/30/17 13:31 Completed ECG 12 lead ECG [ECG] Routine Y 01/31/17 13:00 Completed EKG [ECG 12 lead ECG] [ECG] DAILY Y 01/31/17 13:00 Completed EKG [ECG 12 lead ECG] [ECG] DAILY Y 02/01/17 13:00 Completed Date of admission: 01/30/17 23:15 Primary care physician: Chaz Teran CNP Consults: 01/29/17 08:58 Consult to Physician [CONS] Routine Consulting Provider: Neftaly Stewart Reason for Consult: Afib RVR, CAD Call Completed: Yes Discharging clinician: Elo Crane Anticipated date of discharge: 02/01/17 - Patient Status Disposition: Home, Self-Care Condition: Good Functional capacity at discharge: independent ambulation Overall status at discharge: patient is back to baseline - Discharge Instructions Instructions: Sotalol (By mouth), Rivaroxaban (By mouth), Atrial Fibrillation ( GEN), Hypertension (DC) Follow Up With: Chaz Teran CNP [Primary Care Provider] - Additional Instructions: Take your medications as directed Follow up with Dr Odom as scheduled Return to ED or your family doctor for any questions, concerns, or problems - Diet and Activity Activity: increase activity as tolerated Diet: low fat, low cholesterol Hospital course: Mr. Torres is a 72 year old male with history of Afib RVR, CAD, hyperlipidemia, and HTN who presented to the ED on 01/29 with afib RVR. Rate was controlled with cArdizem, pt was started and pt still had symptoms. Medicaiton was changed to Sotalol 80mg po bid which controlled the rate well. Pt is asymptomatic currently. Pt was held until he had 5 doses and EKGs afterwards. Per cardio, pt was ok to go home if today's EKG after dose QTc was less than 500ms. EKG showed sinus bradycardia, rate 50, QTc 413. Pt will be started on Xarelto 20mg po daily and Sotalol 80mg bid at home. Pt denies pain and amb easily in his room. He has a good appetite and is taking po fluids well. Pt is stable for discharge. - Time Spent with Patient Total time spent providing and/or coordinating discharge services: Less than 30 minutes - Constitutional Vitals: Temp Pulse Resp BP Pulse Ox 97.6 F 55 16 119/74 97 02/01/17 10:44 02/01/17 10:44 02/01/17 10:44 02/01/17 10:44 02/01/17 10:44 General appearance: Present: cooperative, A&O X 3, pleasant, no acute distress, answers questions appropriately - Eye Eye exam: Present: normal appearance, conjuntiva pink - ENT ENT exam: Present: mucous membranes moist, normal external ear exam - Neck Neck exam general surgery: Present: normal inspection. Absent: lymphadenopathy , tenderness - Respiratory Respiratory exam: Present: CTAB. Absent: respiratory distress, rhonchi, stridor , wheezes, tachypnea - Cardiovascular Cardiovascular exam: Present: RRR, +S1, +S2 - GI/Abdominal GI/Abdominal exam: Present: normal bowel sounds, soft. Absent: hepatomegaly, mass, tenderness - Extremities Exam Extremities exam: Present: normal capillary refill, normal inspection, tenderness, warm, radial pulses palpable and symetrical. Absent: calf tenderness, pedal edema - Neurological Exam Neurological exam: Present: alert, oriented X3, no focal deficits
== END 2017-02-01 14:48 | disposition home or self-care (01) | DRG 310 ==
LOC: 3BNU
PROVIDERS: ADMIT Internal Medicine; ATTEND Internal Medicine Endocrinology, Diabetes & Metabolism

== ENCOUNTER 2022-04-22 00:42 | Observation (INO) ==
[2022-04-22] MEDS ORDERED: Naloxone 0.4 MG/ML INJ IVP PRN (05:54)
[2022-04-22] MEDS ORDERED: Ondansetron 4 MG/2 ML VIAL IVP PRN (05:54)
[2022-04-22] MEDS ORDERED: Acetaminophen 325 MG TABLET PO PRN (05:54)
[2022-04-22] MEDS ORDERED: 0.9 % Sodium Chloride 1,000 ML IVC SCH (06:00)
[2022-04-22 07:05] LABS: Alanine Aminotransferase 13 Units/L (7-52); Albumin 3.8 g/dL (3.5-5.7); Albumin/Globulin Ratio 1.7 (1.1-2.2); Alkaline Phosphatase 62 Units/L (34-104); Aspartate Amino Transferase 18 Units/L (13-39); BUN/Creatinine Ratio 11 (6-26); Bilirubin,Total 0.9 mg/dL (0.3-1.0); Blood Urea Nitrogen 10 mg/dL (8-23); Calcium 8.7 mg/dL (8.6-10.3); Carbon Dioxide 27 mEq/L (23-29); Chloride 109 mEq/L (98-107); Globulin 2.3 g/dL (2.4-3.5); Glucose 90 mg/dL (70-105); Osmolality,Calculated 289 (280-300); Potassium 3.8 mEq/L (3.5-5.1); Sodium 140 mEq/L (136-145); Total Protein 6.1 g/dL (6.4-8.9); eGFR For African Americans > 60 (> 60); eGFR For Non-African Americans > 60 (> 60)
[2022-04-22] MEDS ORDERED: *HR* Belladonna Alkaloids/Opium 30 MG RECTAL SUPPOSITORY RC ONE (09:35)
[2022-04-22] MEDS ORDERED: *HR* Belladonna Alkaloids/Opium 30 MG RECTAL SUPPOSITORY RC PRN (11:52)
[2022-04-22] MEDS: Hyoscyamine SL 0.125 MG TAB.SUBL SL SCH ×2 (15:27→20:53)
[2022-04-22] MEDS ORDERED: TADALAFIL 20 MG PO PRN (16:27)
[2022-04-22] MEDS: hydroCHLOROthiazide 25 MG TABLET PO SCH (17:23)
[2022-04-23 05:11] VITALS: TEMP 97.8; O2SAT 97
[2022-04-23] MEDS: hydroCHLOROthiazide 25 MG TABLET PO SCH (06:38)
[2022-04-23 07:14] VITALS: BP 129/84; PULSE 61
[2022-04-23 08:59] LABS: Basophils % 0.3 %; Eosinophils # 0.1 K/mcL (0.0-0.6); Eosinophils % 1.3 %; Hematocrit 44.1 % (37.5-50.1); Hemoglobin 15.2 g/dL (12.9-16.9); Immature Granulocytes % 0.3 % (0-4); Lymphocytes # 1.5 K/mcL (0.6-4.6); Lymphocytes % 16.6 %; Mean Corpuscular HGB Conc 34.5 g/dL (31.6-35.5); Mean Corpuscular Hemoglobin 31.4 pg (28.0-33.3); Mean Corpuscular Volume 91.1 fL (83.0-100.0); Mean Platelet Volume 10.5 fL (9.4-12.4); Monocytes # 0.8 K/mcL (0.0-1.3); Monocytes % 9.3 %; Neutrophils # 6.3 K/mcL (1.6-8.9); Platelet Count 171 K/mcL (140-400); Red Blood Count 4.84 M/mcL (4.19-5.50); Red Cell Distribution Width 12.7 % (11.5-14.5); Segmented Neutrophils % 72.2 %; White Blood Count 8.8 K/mcL (4.3-11.1)
[2022-04-23] MEDS ORDERED: Finasteride 5 MG TABLET PO SCH (09:00)
[2022-04-23 09:07] LABS: Activated Partial Thrombo Time 28.5 Seconds (26.0-36.0)
[2022-04-23 09:08] LABS: INR 1.2; Prothrombin Time 13.8 Seconds (9.4-12.1)
[2022-04-23] MEDS: Hyoscyamine SL 0.125 MG TAB.SUBL SL SCH ×2 (09:29→09:35)
[2022-04-23 10:18] LABS: BUN/Creatinine Ratio 13 (6-26); Blood Urea Nitrogen 11 mg/dL (8-23); Calcium 8.7 mg/dL (8.6-10.3); Carbon Dioxide 18 mEq/L (23-29); Chloride 107 mEq/L (98-107); Glucose 102 mg/dL (70-105); Osmolality,Calculated 282 (280-300); Potassium 3.9 mEq/L (3.5-5.1); Sodium 136 mEq/L (136-145); eGFR For African Americans > 60 (> 60); eGFR For Non-African Americans > 60 (> 60)
== END 2022-04-23 11:46 | disposition home or self-care (01) ==
LOC: 3ANU → SUATTDRO 05:46
PROVIDERS: ADMIT Internal Medicine; ATTEND Family Medicine